=== PATIENT | female | born 1990 | race African-American/Black ===

== ENCOUNTER 2022-10-22 14:59 | Emergency (ER) | payer MEDICAID ==
[~2022-10-22] VITALS: Ht 170.2 cm; Wt 70.0 kg
[2022-10-22 15:05] VITALS: O2SAT 99
[2022-10-22] MEDS ORDERED: MORPHINE SULFATE 4 MG/ML CPJ (NOT FOR IM USE) IV STA ×2 (15:40→18:02)
[2022-10-22] MEDS ORDERED: ONDANSETRON HCL 4MG/2ML INJ IV STA (15:40)
[2022-10-22] MEDS ORDERED: SODIUM CHLORIDE 0.9% 1,000 ML IV ONE (15:45)
[2022-10-22 16:45] LABS: HEMATOCRIT. 36.9 % (36.0-48.0); HEMOGLOBIN. 12.3 g/dL (12.0-16.0); MEAN CORPUSCULAR HEMOGLOBIN 28.2 pg (28.0-32.0); MEAN CORPUSCULAR HGB CONC 33.3 g/dL (31.0-37.0); MEAN CORPUSCULAR VOLUME 84.7 fL (81.0-99.0); MEAN PLATELET VOLUME 9.9 fl (7.4-10.4); PLATELET 255 x1000/uL (130-400); RED BLOOD CELL COUNT 4.36 mill/uL (4.2-5.4); RED CELL DISTRIBUTION WIDTH 13.2 % (11.6-14.6); WHITE BLOOD COUNT 15.4 x1000/uL (4.5-11.0)
[2022-10-22 16:46] LABS: DIFFERENTIAL COMMENT 1
[2022-10-22 16:55] LABS: PROTHROMBIN TIME 10.9 sec (9.6-11.0)
[2022-10-22 17:00] LABS: HCG SCREEN NEGATIVE
[2022-10-22 17:03] LABS: CHLORIDE 109 mEq/L (98-107); INDEX HEMOLYSI 1 (1-3); INDEX ICTERIC 1 (1-4); INDEX LIPEMIC 1 (1-3); POTASSIUM 3.3 mEq/L (3.5-5.1); SODIUM 137 mEq/L (136-145)
[2022-10-22 17:17] LABS: LACTIC ACID 3.3 mmol/L (0.4-2.0)
[2022-10-22 17:37] VITALS: TEMP 97.8
[2022-10-22 17:38] LABS: ALANINE AMINOTRANSFERASE 23 IU/L (13-61); ALBUMIN 4.3 g/dL (3.4-5.0); ASPARTATE AMINOTRANSFERASE 17 IU/L (15-37); BILIRUBIN TOTAL 0.8 mg/dL (0.1-1.0); CALCIUM 9.6 mg/dL (8.5-10.1); CARBON DIOXIDE 22 mEq/L (21-32); CREATININE 0.6 mg/dL (0.6-1.3); GLUCOSE 121 mg/dL (70-105); PROTEIN TOTAL 8.2 g/dL (6.0-8.3); UREA NITROGEN BLOOD 12 mg/dL (7-21)
[2022-10-22] MEDS ORDERED: DICYCLOMINE HCL 10MG/ML 2ML VIAL IM ONE (18:15)
[2022-10-22] MEDS ORDERED: ONDANSETRON HCL 4MG/2ML INJ IV ONE (18:15)
[2022-10-22 18:16] VITALS: BP 140/80; PULSE 63; RESP 13
[2022-10-22 18:31] LABS: PLATELET ESTIMATE NORMAL
[2022-10-22] MEDS ORDERED: DICYCLOMINE HCL 10MG/ML 2ML VIAL IM NR (19:30)
[2022-10-22] MEDS ORDERED: DICY20TA2 MT (19:43)
[2022-10-22] MEDS ORDERED: ONDA4TAB11 PO (19:43)
== END 2022-10-22 21:13 | disposition home or self-care (01) ==
LOC: ER 14:59
DX: R11.2 Nausea with vomiting, unspecified (principal)
CPT/HCPCS: 80053; 84703; 83605; 83690; 85025; 85610; 36415; 96361; 96374; 96375; 96376; 99284; J2405; J2270; J7030; Z7610 ×4; J0500